=== PATIENT | female | born 1955 | race Caucasian/White ===

== ENCOUNTER 2018-02-15 12:03 | Day surgery (SDC) | payer OTHER ==
[~2018-02-15] VITALS: Ht 157.5 cm; Wt 84.6 kg
[2018-02-15] MEDS ORDERED: TRULICITY1.5 MG/0.5 SQ (12:25)
[2018-02-15] MEDS ORDERED: PRINIVIL10 MG PO (12:26)
[2018-02-15] MEDS ORDERED: REGLAN 10MG10 MG/TAB PO (12:26)
[2018-02-15] MEDS ORDERED: ULTRAM 50MG TAB50 MG PO ×4 (12:27→12:28)
[2018-02-15] MEDS ORDERED: PROTONIX20 MG PO (12:28)
[2018-02-15 12:33] VITALS: BP 139/83; PULSE 85; TEMP 98
[2018-02-15 13:25] VITALS: BP 107/69; PULSE 96; TEMP 97.6
[2018-02-15 13:40] VITALS: BP 114/74; PULSE 94
[2018-02-15 13:55] VITALS: BP 107/69; PULSE 87
== END 2018-02-15 14:10 | disposition home or self-care (01) ==
LOC: SDCO 12:03
DX: K29.50 Unspecified chronic gastritis without bleeding (principal); M54.31 Sciatica, right side; K31.84 Gastroparesis; K21.9 Gastro-esophageal reflux disease without esophagitis; I10 Essential (primary) hypertension; E11.9 Type 2 diabetes mellitus without complications; Z79.84 Long term (current) use of oral hypoglycemic drugs; I25.10 Atherosclerotic heart disease of native coronary artery without angina pectoris
CPT/HCPCS: J2704; J7030

== ENCOUNTER → 2021-06-18 | Outpatient (CLI) | payer BC ==
[~2021-06-18] MED LIST: ASPIRIN E.C. 8181 MG PO; B COMPLEX #11 TA1 PO; BASAGLAR K100 UNIT/1 SQ; CARAFATE 1GM1 G PO; COMPLETE MULTI1 TAB PO; CRANBERRY250 MG PO; HUMALOG100 U/ML SQ; MASON NATURAL600 MG PO; NATURAL MAGNES200 MG PO; NEURONTIN100 MG/CAP PO; PRINIVIL5 MG PO; PROTONIX20 MG PO; REGLAN 10MG10 MG/TAB PO; REPATHA SU140 MG/1 M SQ; TOPROL XL 50MG50 MG PO; TRULICITY1.5 MG/0.5 SQ; ULTRAM 50MG TAB50 MG PO; VITAMIN D 400400 IU PO; VITAMINC1000TA PO
== END ==
LOC: COL.VAS 13:20
DX: M79.662 Pain in left lower leg (principal); Z96.652 Presence of left artificial knee joint

== ENCOUNTER 2021-10-25 09:54 | Day surgery (SDC) | payer BC ==
[2021-10-25] VITALS (10 sets, daily range): BP systolic 120–136; BP diastolic 49–68; PULSE 73–84; TEMP 98
[~2021-10-25] VITALS: Ht 157.5 cm; Wt 87.4 kg
[~2021-10-25 09:54] MED LIST changes: -ASPIRIN E.C. 8181 MG PO; -B COMPLEX #11 TA1 PO; -BASAGLAR K100 UNIT/1 SQ; -CARAFATE 1GM1 G PO; -COMPLETE MULTI1 TAB PO; -CRANBERRY250 MG PO; -HUMALOG100 U/ML SQ; -MASON NATURAL600 MG PO; -NATURAL MAGNES200 MG PO; -NEURONTIN100 MG/CAP PO; -REPATHA SU140 MG/1 M SQ; -TOPROL XL 50MG50 MG PO; -VITAMIN D 400400 IU PO; -VITAMINC1000TA PO
[2021-10-25 10:22] LABS: HEMATOCRIT 44.1 % (37.0-47.0); HEMOGLOBIN 15.1 g/dl (12.5-16.0); MEAN CELL VOLUME 88 fl (80.0-100.0); MEAN CORPUSCULAR HEMOGLOBIN 30 pg (27.0-31.0); MEAN CORPUSCULAR HGB CONC 34 g/dl (33.0-37.0); MEAN PLATELET VOLUME 9.8 fl (7.4-10.4); PLATELET COUNT 229 K/mm3 (130-400); RED BLOOD COUNT 5.01 M/mm3 (4.10-5.30); REDCELL DISTRIBUTION WIDTH-CV 13.2 % (11.5-14.5)
[2021-10-25 10:29] LABS: INR 1.1 (0.8-3.0)
[2021-10-25 10:32] LABS: PARTIAL THROMBOPLASTIN TIME 30.5 SECONDS (26.0-37.0)
[2021-10-25 10:35] LABS: CALCIUM 9.8 mg/dL (8.4-10.2); CREATININE, serum 0.77 mg/dL (0.57-1.11); POTASSIUM 4.3 mmol/L (3.5-4.5)
[2021-10-25] MEDS ORDERED: BASAGLAR K100 UNIT/1 SQ (10:36)
[2021-10-25] MEDS ORDERED: HUMALOG100 U/ML SQ (10:36)
[2021-10-25] MEDS ORDERED: TOPROL XL 50MG50 MG PO (10:37)
[2021-10-25] MEDS ORDERED: NEURONTIN100 MG/CAP PO (10:38)
[2021-10-25] MEDS ORDERED: ASPIRIN E.C. 8181 MG PO (10:41)
[2021-10-25] MEDS ORDERED: CARAFATE 1GM1 G PO (10:41)
[2021-10-25] MEDS ORDERED: VITAMIN D 400400 IU PO (10:43)
[2021-10-25] MEDS ORDERED: B COMPLEX #11 TA1 PO (10:43)
[2021-10-25] MEDS ORDERED: CRANBERRY250 MG PO (10:44)
[2021-10-25] MEDS ORDERED: NATURAL MAGNES200 MG PO (10:44)
[2021-10-25] MEDS ORDERED: MASON NATURAL600 MG PO (10:45)
[2021-10-25] MEDS ORDERED: COMPLETE MULTI1 TAB PO (10:45)
[2021-10-25] MEDS ORDERED: VITAMINC1000TA PO (10:45)
--- NOTE | 2021-10-25 11:17 | NUR ---
SEE MERGE FOR ALL MEDICATION ADMINISTRATION TIMES, INTRA AND POST SEDATION ASSESSMENTS
[2021-10-25] MEDS ORDERED: REPATHA SU140 MG/1 M SQ (13:04)
--- NOTE | 2021-10-25 15:25 | NUR ---
DC instructions reviewed with pt, she expresses understanding. She is steady on feet with cane in room. INT DC'd with catheter intact. Air was removed from TR band in 2 ml increments with no bleeding from rt radial puncture site. Site covered with folded 2x2 and gauze. Pt assisted out to 's car by wheelchair with belongings.
== END 2021-10-25 15:43 | disposition home or self-care (01) ==
LOC: COL.CAR 09:54
PROVIDERS: Internal Medicine Interventional Cardiology
DX: I25.118 Atherosclerotic heart disease of native coronary artery with other forms of angina pectoris (principal); I10 Essential (primary) hypertension; I51.7 Cardiomegaly; I87.2 Venous insufficiency (chronic) (peripheral); E78.5 Hyperlipidemia, unspecified; E11.9 Type 2 diabetes mellitus without complications; Z79.891 Long term (current) use of opiate analgesic; Z79.84 Long term (current) use of oral hypoglycemic drugs
CPT/HCPCS: C1769; J1644; J2250; J3010; Q9967

== ENCOUNTER 2022-04-03 16:40 | Observation (INO) | payer MEDICARE ==
[~2022-04-03] VITALS: Ht 154.9 cm; Wt 191.8 kg
[~2022-04-03 16:40] MED LIST changes: +ASPIRIN E.C. 8181 MG PO; +B COMPLEX #11 TA1 PO; +BASAGLAR K100 UNIT/1 SQ; +CARAFATE 1GM1 G PO; +COMPLETE MULTI1 TAB PO; +CRANBERRY250 MG PO; +HUMALOG100 U/ML SQ; +MASON NATURAL600 MG PO; +NATURAL MAGNES200 MG PO; +NEURONTIN100 MG/CAP PO; +REPATHA SU140 MG/1 M SQ; +TOPROL XL 50MG50 MG PO; +VITAMIN D 400400 IU PO; +VITAMINC1000TA PO
[2022-04-03 16:50] VITALS: BP 142/61; PULSE 49; TEMP 98.1
[2022-04-03 20:27] VITALS: BP 104/56; PULSE 50; TEMP 98.4
--- NOTE | 2022-04-03 22:12 | NUR ---
AAOX4 PATIENT REMAINS BRADYCARDI AT 53 ON TELE. NO C/O PAIN OR DISCOMFORT PATIENT REMAINS ON IV FLUIDS FOR HYDRATION CALLED DOWN TO CT IN REGARDS TO CHEST AND HEAD CT PENDING RADIOLOGY IS AWARE. NUTRITION ADEQAUTE FOR DINNER PROVIDED INSULIN DIRECTED. NO S/S OF SOB OR DISTRESS WILL CONTINUE TO MONITOR FOR ANY CHANGES.
[2022-04-03 23:59] VITALS: BP 117/61; PULSE 64; TEMP 98.4
--- NOTE | 2022-04-04 01:50 | NUR ---
HR ON THE TELE 83 SINUS RYTHM, NO CHEST PAIN NOTED PATIENT HEART RATE HAS IMPROVED WILL CONTINUE TO MONITOR.
[2022-04-04 01:51] VITALS: PULSE 82
--- NOTE | 2022-04-04 04:02 | NUR ---
PATIENT SLEPT THROUGHOUT THE NIGHT PATIENT NO LONGER BRADYCARDIA HR ABOVE 70'S AND MAINTANING. DENIES ANY CHEST PAIN AT THIS TIME. INFORMED MINERAL MIXER PORSCHE ON CT OF THE HEAD AND CHEST READY FOR REVIEW. WILL CONTINUE TO MONITOR FOR ANY CHANGES. CARDIOLOGY STATED TO HOLD BETA BLOCKERS AT THIS TIME.
[2022-04-04 04:20] VITALS: BP 137/53; PULSE 78; TEMP 97.5
[2022-04-04 06:49] LABS: BASO # 0.1 K/mm3 (0.0-0.2); BASO % 1.2 % (0.0-2.0); EOS # 0.2 K/mm3 (0.0-0.7); EOS % 3.1 % (0.0-4.0); GRAN # 2.2 K/mm3 (1.4-6.5); GRAN % 43.7 % (42.2-75.2); HEMATOCRIT 45.4 % (37.0-47.0); HEMOGLOBIN 14.8 g/dl (12.5-16.0); LYMPH # 1.9 K/mm3 (1.2-3.4); LYMPH % 37.4 % (20.0-51.0); MEAN CELL VOLUME 94 fl (80.0-100.0); MEAN CORPUSCULAR HEMOGLOBIN 31 pg (27-31); MEAN CORPUSCULAR HGB CONC 33 g/dl (33.0-37.0); MEAN PLATELET VOLUME 10.3 fl (7.4-10.4); MONO # 0.7 K/mm3 (0.1-0.6); MONO % 13.8 % (1.7-9.3); PLATELET COUNT 177 K/mm3 (130-400); RED BLOOD COUNT 4.83 M/mm3 (4.10-5.30); REDCELL DISTRIBUTION WIDTH-CV 12.9 % (11.5-14.5)
--- NOTE | 2022-04-04 06:53 | NUR ---
appears to be sleeping, bedside shift report received from LETICIA Mahmood
[2022-04-04 07:03] LABS: CALCIUM 8.3 mg/dL (8.4-10.2); CREATININE, serum 0.72 mg/dL (0.57-1.11); MAGNESIUM 1.8 mg/dL (1.6-2.6); POTASSIUM 4.1 mmol/L (3.5-4.5)
--- NOTE | 2022-04-04 07:08 | NUR ---
assisted up to bathroom, needed assistance with getting to standing position this am, then back to bed and sitting up on side of bed, full assessment completed, see interventions for further info, denies needs at this time
[2022-04-04 07:14] LABS: TROPONIN-I 0.014 ng/mL (0.00-0.033)
[2022-04-04 08:00] VITALS: BP 133/66; PULSE 74; TEMP 98.3
--- NOTE | 2022-04-04 08:30 | NUR ---
physical therapy in to work with patient, ambulating in [place]
[2022-04-04] MEDS ORDERED: WELLBUTRIN XL150 MG PO (09:22)
[2022-04-04] MEDS ORDERED: PLAVIX 75MG TAB75 MG PO (09:23)
--- NOTE | 2022-04-04 09:25 | NUR ---
Initial visit; Patient thanked License Distributor for looking in on her. Caitlin had a battery of tests and is waiting for the results. She states she feels better since she had been here at the hospital. License Distributor added that once she knows what is going on and can be helped she will feel relieved. She said she will and thanked License Distributor for offering blessings and to keep her in her prayers.
[2022-04-04] MEDS ORDERED: TOPROL XL 25MG25 MG PO (09:56)
--- NOTE | 2022-04-04 10:38 | NUR ---
Pt doing well, has orders for discharge. Stated that her will be coming from [facility] to get her, not sure when he left. Pt states that she is not having any pain at this time. Pt aware of her follow up appointments that she has. All questions answered. Informed pt to notify nursing when her ride gets here.
--- NOTE | 2022-04-04 11:56 | NUR ---
floor worker met with patient to complete intake and discuss discharge plan. Patient states that she lives at home in [place] with her Josh ([phone]). Patient is independent with her ADL's. 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 Patient has no home oxygen needs. PCP is Adia Novoa out of [place]. She utilizes [facility] in [place] for perscriptions with no cost difficulty. Patient does not have a DPOA-HC established and does not wish to create one at this time. Discussed with the patient that PT is recommending she consider OP PT. Patient is against this at this time. She states that she doesn't "have time" for it and that she is scheduled to get back surgery in April. Patient is planning on returning home with no concerns at this time. Discharge plan: Home with spouse.
== END 2022-04-04 12:10 | disposition home or self-care (01) ==
LOC: SURG 16:40
PROVIDERS: Internal Medicine; ADMIT Student in an Organized Health Care Education/Training Program
DX: R00.1 Bradycardia, unspecified (principal); R07.89 Other chest pain; R42 Dizziness and giddiness; R91.1 Solitary pulmonary nodule; K21.9 Gastro-esophageal reflux disease without esophagitis; E11.9 Type 2 diabetes mellitus without complications; E66.9 Obesity, unspecified; I25.10 Atherosclerotic heart disease of native coronary artery without angina pectoris; E78.5 Hyperlipidemia, unspecified; I10 Essential (primary) hypertension; G89.29 Other chronic pain; Z79.899 Other long term (current) drug therapy; Z95.5 Presence of coronary angioplasty implant and graft; Z79.82 Long term (current) use of aspirin; Z79.4 Long term (current) use of insulin
CPT/HCPCS: 99223-AI; G0378; J1650; J1815; J7030; Q9967